=== PATIENT | female | born 1955 | race Asian ===

== ENCOUNTER → 2016-12-02 | Outpatient (CLI) | payer OTHER | LOC: BRMIMAGING 15:27 | DX: S92.532A Displaced fracture of distal phalanx of left lesser toe(s), initial encounter for closed fracture (principal); M81.0 Age-related osteoporosis without current pathological fracture | CPT/HCPCS: 73630-PO ==

== ENCOUNTER → 2017-01-05 | Outpatient (CLI) | payer OTHER | LOC: BRMIMAGING 14:35 | PROVIDERS: ATTEND Internal Medicine | DX: S92.422D Displaced fracture of distal phalanx of left great toe, subsequent encounter for fracture with routine healing (principal); S92.532D Displaced fracture of distal phalanx of left lesser toe(s), subsequent encounter for fracture with routine healing | CPT/HCPCS: 73630-PO ==